=== PATIENT | male | born 1965 ===

== ENCOUNTER 2023-12-03 07:27 | Day surgery (SDC) | payer OTHER ==
[2023-11-30 10:38] LABS: HEMOGLOBIN 14.7 g/dL (13-16.00); MEAN CORPUSCULAR HEMOGLOBIN 32.5 pg (27.00-32.0); MEAN CORPUSCULAR HGB CONC 35.8 g/dl (32.0-36.0); RED BLOOD COUNT 4.51 M/uL (4.00-6.00); RED CELL DISTRIBUTION WIDTH 13.8 % (11.5-14.5)
[2023-11-30 10:42] LABS: PLATELET COUNT 130 K/uL (150-450)
[2023-11-30 10:54] LABS: URINE APPEARANCE Clear; URINE BILIRRUBIN Negative (NEGATIVE); URINE BLOOD Negative; URINE COLOR Yellow; URINE GLUCOSE Negative (NEGATIVE); URINE LEUKOCYTE Negative; URINE NITRATE Negative; URINE PROTEIN Negative (NEGATIVE); URINE UROBILINOGEN 0.2 E.U./dl
[2023-11-30 10:58] LABS: URINE WBC 1.8 uL (0.0-23.2)
[2023-11-30 11:04] LABS: PARTIAL THROMBOPLASTIN TIME 28.6 SECONDS (22.0-34.0); PROTHROMBIN TIME 10.5 SECONDS (9.0-11.5)
[2023-11-30 11:14] LABS: ALBUMIN 4.2 gm/dL (3.4-5.0); BILIRUBIN TOTAL 0.96 mg/dL (0.3-1.2); CALCIUM 9.4 mg/dL (8.5-10.1); CREATININE SERUM 1.15 mg/dL (0.70-1.30); GFR 65.31; GLOBULINA 2.7 G/DL (2.4-3.5); POTASSIUM 4.37 mEq/L (3.5-5.1); TOTAL PROTEIN 6.9 gm/dL (6.4-8.2)
[2023-11-30 11:23] LABS: URINE BACTERIA 3.7 uL (0.0-1933); URINE EPITHELIAL CELLS 0.3 uL (0.0-38.8); URINE RBC 0.5 uL (0.0-20.8)
[~2023-12-03] VITALS: Ht 172.7 cm; Wt 85.7 kg
[~2023-12-03 07:27] MED LIST: ATACAND4 MG PO; CRESTOR20 MG PO; HYDRODIURIL12.5 MG PO
[2023-12-03] MEDS ORDERED: CEFAZOLIN SODIUM 1,000 MG VIAL ONE (08:18)
[2023-12-03] MEDS ORDERED: BUPIVACAINE HCL/PF 0.5% 30ML ML ONE (10:02)
[2023-12-03] MEDS ORDERED: KETO10TA2 PO (10:26)
[2023-12-03] MEDS ORDERED: MIRALAX17 GM PO (10:26)
[2023-12-03] MEDS ORDERED: TYLENOL ARTHRI650 MG PO (10:26)
[2023-12-03] MEDS ORDERED: TRAMADOL HCL50 MG PO (10:26)
[2023-12-03] MEDS ORDERED: CEFAZOLIN SODIUM 1,000 MG VIAL IV ONE (10:45)
[2023-12-03] MEDS ORDERED: BUPIVACAINE HCL 30 ML VIAL IJ ONE (10:45)
== END 2023-12-03 19:05 | disposition home or self-care (01) ==
LOC: CIR.AMB 07:27
PROVIDERS: ATTEND Surgery
DX: K40.20 Bilateral inguinal hernia, without obstruction or gangrene, not specified as recurrent (principal); K42.9 Umbilical hernia without obstruction or gangrene; I10 Essential (primary) hypertension
CPT/HCPCS: 49592; 49650; C1781